=== PATIENT | female | born 1990 | race Caucasian/White ===

== ENCOUNTER → 2016-04-22 | Outpatient (CLI) | payer MEDICAID ==
[~2016-04-22] MED LIST: AMOXICILLIN500 MG PO; ATARAX25 MG PO; BENADRYL50 MG PO; CIPROFLOXACIN500 MG PO; CLOTRIMAZOLE TP; COLACE1 SUP RC; DEPO PROVER150 MG/ML IM; DICLEGIS DR 101 EACH PO; ELIMITE 5%60 GM PO; FLONASE 0.05% 121 EA NAS; LIDEX0.05% T; MACROBID100 M1 PO; MOTRIN800 MG PO; NIZORAL 2%15 GM PO; NKHM; PHENERGAN25 M1 PO; PREDNICOT20 MG PO; PYRIDIUM100 MG PO; ROBITUSSIN AC 110 ML PO; ROBITUSSIN DM120 ML PO; VICODIN 5/500 505 MG PO; ZITHROMAX Z PA250 MG PO; ZOFRAN ODT4 MG SL; ZOFRAN4 MG PO
== END | disposition home or self-care (01) ==
LOC: US 14:54
DX: Z34.91 Encounter for supervision of normal pregnancy, unspecified, first trimester (principal); Z3A.01 Less than 8 weeks gestation of pregnancy

== ENCOUNTER 2017-02-21 11:58 | Emergency (ER) | payer OTHER ==
[~2017-02-21] VITALS: Ht 154.9 cm; Wt 61.2 kg
[2017-02-21 12:01] VITALS: BP 132/80
[2017-02-21] MEDS ORDERED: NEXPLANON68 M2 SQ (12:09)
[2017-02-21] MEDS ORDERED: PREDNISONE10 MG PO (12:16)
== END 2017-02-21 13:31 | disposition home or self-care (01) ==
LOC: ED 11:58
DX: R20.2 Paresthesia of skin (principal); M25.532 Pain in left wrist; M25.531 Pain in right wrist; R03.0 Elevated blood-pressure reading, without diagnosis of hypertension

== ENCOUNTER 2017-08-06 22:42 | Emergency (ER) | payer SELFPAY ==
[~2017-08-06] VITALS: Ht 154.9 cm; Wt 59.0 kg
[~2017-08-06 22:42] MED LIST changes: +NEXPLANON68 M2 SQ; +PREDNISONE10 MG PO
[2017-08-06 22:44] VITALS: BP 126/79
[2017-08-06] MEDS ORDERED: TESSALON PERLE100 MG PO (23:13)
[2017-08-06] MEDS ORDERED: ZITHROMAX250 MG PO (23:13)
[2017-08-06] MEDS ORDERED: CLARITIN10 MG PO (23:13)
== END 2017-08-06 23:39 | disposition home or self-care (01) ==
LOC: ED 22:42
DX: J40 Bronchitis, not specified as acute or chronic (principal); J06.9 Acute upper respiratory infection, unspecified; F17.210 Nicotine dependence, cigarettes, uncomplicated; Z79.899 Other long term (current) drug therapy

== ENCOUNTER 2018-10-31 19:27 | Emergency (ER) | payer SELFPAY ==
[~2018-10-31] VITALS: Ht 154.9 cm; Wt 56.7 kg
[~2018-10-31 19:27] MED LIST changes: +CLARITIN10 MG PO; +CLINDAMYCIN150 MG PO; +TESSALON PERLE100 MG PO; +ZITHROMAX250 MG PO
[2018-10-31 19:29] VITALS: BP 113/71
[2018-10-31] MEDS ORDERED: Bactroban Oint22 GM T (20:17)
[2018-10-31] MEDS ORDERED: CEPHALEXIN500 M1 PO (20:17)
== END 2018-10-31 20:30 | disposition home or self-care (01) ==
LOC: ED 19:27
DX: S02.5XXA Fracture of tooth (traumatic), initial encounter for closed fracture (principal); R21 Rash and other nonspecific skin eruption; L29.9 Pruritus, unspecified; R23.4 Changes in skin texture; F17.200 Nicotine dependence, unspecified, uncomplicated; Z79.899 Other long term (current) drug therapy; X58.XXXA Exposure to other specified factors, initial encounter; Y93.89 Activity, other specified; Y92.89 Other specified places as the place of occurrence of the external cause; Y99.8 Other external cause status

== ENCOUNTER 2019-04-20 01:12 | Emergency (ER) | payer SELFPAY ==
[~2019-04-20] VITALS: Ht 154.9 cm; Wt 56.7 kg
[~2019-04-20 01:12] MED LIST changes: +Bactroban Oint22 GM T; +CEPHALEXIN500 M1 PO
[2019-04-20 01:13] VITALS: BP 128/85
[2019-04-20 01:50] LABS: BASO % 0.2 % (0.0-1.0); EOS % 0.2 % (1.0-4.0); HEMATOCRIT 44.6 % (37.0-47.0); HEMOGLOBIN 14.9 g/dl (12.0-16.0); LYMPH # 2.2 10*3/uL (1.3-4.4); LYMPH % 45.1 % (27.0-41.0); MEAN CELL VOLUME 93.9 fl (81.0-99.0); MEAN CORPUSCULAR HGB 31.4 pg (27.0-31.0); MEAN CORPUSCULAR HGB CONC 33.4 g/dl (33.0-37.0); MEAN PLATELET VOLUME 12.3 fl (9.6-12.3); MONO # 0.2 10*3/uL (0.1-1.0); MONO % 4.9 % (3.0-9.0); NEUT # 2.4 10*3/uL (2.3-7.9); NEUT % 49.4 % (47.0-73.0); PLATELET COUNT AUTOMATED 105 10*3/uL (130-400); RED BLOOD COUNT 4.75 10*6/uL (4.10-5.10); WHITE BLOOD COUNT 4.9 10*3/uL (4.8-10.8)
[2019-04-20 01:59] LABS: BILIRUBIN NEGATIVE (NEGATIVE); BLOOD NEGATIVE (NEGATIVE); CLARITY CLEAR (CLEAR); COLOR YELLOW (YELLOW); GLUCOSE NEGATIVE (NEGATIVE); KETONE NEGATIVE (NEGATIVE); LEUKO ESTERASE NEGATIVE (NEGATIVE); NITRITE NEGATIVE (NEGATIVE); SPECIFIC GRAVITY <= 1.005 (1.005-1.030); UROBILINOGEN 0.2 E.U./dl (0.2-1.0)
[2019-04-20 02:05] LABS: ALBUMIN 3.7 gm/dl (3.1-4.5); ALKALINE PHOSPHATASE 67 U/L (45-117); BUN 8 mg/dl (7-24); CHLORIDE 110 mmol/L (98-107); CREATININE 0.75 mg/dL (0.55-1.02); LIPASE 68 U/L (73-393); POTASSIUM 3.5 mmol/L (3.5-5.1); SGOT/AST 15 IU/L (3-35); SGPT/ALT 18 U/L (12-78); SODIUM 140 mmol/L (136-145)
[2019-04-20 02:07] LABS: URINE AMPHETAMINES < 1000 (1000ng/ml); URINE BARBITURATES < 200 (200ng/ml); URINE BENZODIAZEPINES < 200 (200ng/ml); URINE CANNABINOIDS (THC) > 50 (50ng/ml); URINE COCAINE > 300 (300ng/ml); URINE METHADONE < 300 (300ng/ml); URINE OPIATES < 300 (300ng/ml)
[2019-04-20 02:13] LABS: ACETAMINOPHEN (TYLENOL) < 5.0 ug/ml (10-30); BETA-HCG, QUANT < 1.0 mIU/mL (1-3); ETHYL ALCOHOL < 3.0 mg/dl (<3)
[2019-04-20 02:13] LABS: URINE PHENCYCLIDINE < 25 (25ng/ml)
[2019-04-20 02:22] LABS: EPITHELIAL CELLS 15-20
[2019-04-20 02:23] LABS: RBC 0-2 rbc/hpf (0-2); WBC 0-2 wbc/hpf (0-5)
== END 2019-04-20 05:50 | disposition home or self-care (01) ==
LOC: ED 01:12
PROVIDERS: Emergency Medicine Emergency Medical Services
DX: R42 Dizziness and giddiness (principal); R53.1 Weakness; R53.83 Other fatigue; R11.0 Nausea; H53.8 Other visual disturbances; Z79.899 Other long term (current) drug therapy

== ENCOUNTER → 2020-04-23 | Outpatient (CLI) | payer SELFPAY | END | disposition home or self-care (01) | LOC: COVID19 12:56 | PROVIDERS: ATTEND Internal Medicine | DX: Z20.822 Contact with and (suspected) exposure to COVID-19 (principal) ==

== ENCOUNTER 2020-05-05 16:58 | Emergency (ER) | payer OTHER ==
[~2020-05-05] VITALS: Ht 154.9 cm; Wt 56.7 kg
[2020-05-05 17:14] VITALS: BP 130/72
== END 2020-05-05 18:21 | disposition home or self-care (01) ==
LOC: ED 16:58
DX: R19.7 Diarrhea, unspecified (principal); F17.200 Nicotine dependence, unspecified, uncomplicated; Z79.899 Other long term (current) drug therapy

== ENCOUNTER 2020-06-09 16:25 | Emergency (ER) | payer OTHER ==
[~2020-06-09] VITALS: Ht 154.9 cm; Wt 56.7 kg
[2020-06-09 17:16] LABS: BASO % 0.5 % (0.0-1.0); EOS # 0.1 10*3/uL (0.0-0.4); EOS % 1.2 % (1.0-4.0); HEMATOCRIT 43.8 % (37.0-47.0); LYMPH % 40.4 % (27.0-41.0); MEAN CELL VOLUME 94.8 fl (81.0-99.0); MEAN CORPUSCULAR HGB CONC 32.6 g/dl (33.0-37.0); MEAN PLATELET VOLUME 11.8 fl (9.6-12.3); MONO # 0.6 10*3/uL (0.1-1.0); MONO % 7.9 % (3.0-9.0); NEUT # 3.7 10*3/uL (2.3-7.9); NEUT % 49.7 % (47.0-73.0); PLATELET COUNT AUTOMATED 142 10*3/uL (130-400); RED BLOOD COUNT 4.62 10*6/uL (4.10-5.10); RED CELL DISTRI WIDTH 12.2 % (0-14.5); WHITE BLOOD COUNT 7.5 10*3/uL (4.8-10.8)
[2020-06-09 17:26] VITALS: BP 105/70
[2020-06-09 17:26] LABS: ACT PARTIAL THROMBO TIME 28.8 SECONDS (20.0-32.1)
[2020-06-09 17:35] LABS: ALBUMIN 3.7 gm/dl (3.1-4.5); ALKALINE PHOSPHATASE 48 U/L (45-117); BUN 14 mg/dl (7-24); CHLORIDE 108 mmol/L (98-107); CREATININE 0.83 mg/dL (0.55-1.02); POTASSIUM 3.4 mmol/L (3.5-5.1); SGOT/AST 10 IU/L (3-35); SGPT/ALT 25 U/L (12-78); SODIUM 139 mmol/L (136-145); TOTAL PROTEIN 6.8 gm/dL (6.4-8.2)
[2020-06-09 17:37] LABS: TROPONIN I < 0.015 ng/ml (<0.045)
[2020-06-09] MEDS ORDERED: PEPCID20 MG PO (17:46)
== END 2020-06-09 18:25 | disposition home or self-care (01) ==
LOC: ED 16:25
PROVIDERS: Nurse Practitioner Family
DX: K21.9 Gastro-esophageal reflux disease without esophagitis (principal); R07.89 Other chest pain; F17.200 Nicotine dependence, unspecified, uncomplicated; Z79.899 Other long term (current) drug therapy

== ENCOUNTER 2020-07-25 18:16 | Emergency (ER) | payer OTHER ==
[~2020-07-25 18:16] MED LIST changes: +PEPCID20 MG PO
[2020-07-25 18:24] VITALS: BP 114/76
== END 2020-07-25 19:15 | disposition home or self-care (01) ==
LOC: ED 18:16
DX: B35.3 Tinea pedis (principal); F17.200 Nicotine dependence, unspecified, uncomplicated; Z79.899 Other long term (current) drug therapy

== ENCOUNTER 2020-10-09 14:24 | Emergency (ER) | payer OTHER ==
[~2020-10-09] VITALS: Ht 154.9 cm; Wt 53.5 kg
[2020-10-09 14:29] VITALS: BP 124/78
== END 2020-10-09 14:49 | disposition home or self-care (01) ==
LOC: ED 14:24
DX: Z34.92 Encounter for supervision of normal pregnancy, unspecified, second trimester (principal); Z79.899 Other long term (current) drug therapy; Z3A.16 16 weeks gestation of pregnancy

== ENCOUNTER 2020-12-02 21:40 | Emergency (ER) | payer OTHER ==
[~2020-12-02] VITALS: Wt 59.0 kg
[2020-12-02 21:49] VITALS: BP 116/65
== END 2020-12-03 00:53 | disposition home or self-care (01) ==
LOC: ED 21:40
DX: O98.512 Other viral diseases complicating pregnancy, second trimester (principal); U07.1 COVID-19; O99.612 Diseases of the digestive system complicating pregnancy, second trimester; K21.9 Gastro-esophageal reflux disease without esophagitis; Z3A.20 20 weeks gestation of pregnancy; Z79.2 Long term (current) use of antibiotics; Z79.899 Other long term (current) drug therapy

== ENCOUNTER → 2020-12-12 | Outpatient (CLI) | payer OTHER | END | disposition home or self-care (01) | LOC: LAB 00:14 → COVID19 00:14 | PROVIDERS: ATTEND Internal Medicine | DX: U07.1 COVID-19 (principal) ==

== ENCOUNTER → 2020-12-21 | Outpatient (CLI) | payer OTHER | END | disposition home or self-care (01) | LOC: LAB 03:29 → COVID19 03:29 | PROVIDERS: ATTEND Internal Medicine | DX: U07.1 COVID-19 (principal) ==

== ENCOUNTER 2022-02-07 13:57 | Emergency (ER) | payer OTHER ==
[~2022-02-07] VITALS: Wt 56.7 kg
[2022-02-07 14:01] VITALS: BP 127/73
[2022-02-07] MEDS ORDERED: MEDROL DOSEPAK4 MG PO (15:33)
== END 2022-02-07 15:42 | disposition home or self-care (01) ==
LOC: ED 13:57
DX: T63.441A Toxic effect of venom of bees, accidental (unintentional), initial encounter (principal); Z79.899 Other long term (current) drug therapy; Y92.89 Other specified places as the place of occurrence of the external cause

== ENCOUNTER 2022-09-10 13:49 | Emergency (ER) | payer OTHER ==
[~2022-09-10] VITALS: Ht 162.5 cm
[~2022-09-10 13:49] MED LIST changes: +MEDROL DOSEPAK4 MG PO
[2022-09-10] MEDS ORDERED: ATHLETIC FOOT C30 GM T (14:43)
== END 2022-09-10 15:00 | disposition home or self-care (01) ==
LOC: ED 13:49
DX: B35.4 Tinea corporis (principal)

== ENCOUNTER 2022-10-07 15:25 | Emergency (ER) | payer OTHER ==
[~2022-10-07] VITALS: Ht 154.9 cm; Wt 59.0 kg
[~2022-10-07 15:25] MED LIST changes: +ATHLETIC FOOT C30 GM T
[2022-10-07 15:40] VITALS: BP 113/76
[2022-10-07 16:46] LABS: BASO % 0.6 % (0.0-1.0); EOS # 0.2 10*3/uL (0.0-0.4); EOS % 2.2 % (1.0-4.0); HEMATOCRIT 46.9 % (37.0-47.0); LYMPH # 2.4 10*3/uL (1.3-4.4); LYMPH % 35.3 % (27.0-41.0); MEAN CELL VOLUME 91.8 fl (81.0-99.0); MEAN CORPUSCULAR HGB 31.1 pg (27.0-31.0); MEAN CORPUSCULAR HGB CONC 33.9 g/dl (33.0-37.0); MEAN PLATELET VOLUME 11.5 fl (9.6-12.3); MONO # 0.4 10*3/uL (0.1-1.0); MONO % 6.3 % (3.0-9.0); NEUT # 3.8 10*3/uL (2.3-7.9); NEUT % 55.3 % (47.0-73.0); PLATELET COUNT AUTOMATED 153 10*3/uL (130-400); RED BLOOD COUNT 5.11 10*6/uL (4.10-5.10); RED CELL DISTRI WIDTH 12.2 % (0-14.5); WHITE BLOOD COUNT 6.9 10*3/uL (4.8-10.8)
[2022-10-07 17:13] LABS: ALKALINE PHOSPHATASE 66 U/L (46-116); BUN 9 mg/dl (9-23); CHLORIDE 109 mmol/L (98-107); POTASSIUM 3.5 mmol/L (3.4-5.1); SGPT/ALT 8 U/L (10-49); TOTAL PROTEIN 6.9 gm/dL (6.0-8.0)
[2022-10-07 17:16] LABS: BETA-HCG, QUANT < 3.0 mIU/mL (3-10)
[2022-10-07] MEDS ORDERED: VIBRA-TAB100 MG PO (17:41)
[2022-10-07] MEDS ORDERED: DIFLUCAN150 MG PO (17:41)
== END 2022-10-07 17:54 | disposition home or self-care (01) ==
LOC: ED 15:25
PROVIDERS: Emergency Medicine
DX: B35.4 Tinea corporis (principal); R21 Rash and other nonspecific skin eruption